=== PATIENT | male | born 1970 | race African-American/Black ===

== ENCOUNTER 2016-05-14 23:36 | Emergency (ER) | payer MEDICAID ==
[~2016-05-14] VITALS: Ht 182.9 cm; Wt 92.1 kg
[2016-05-15] MEDS ORDERED: ALBUTEROL SULF 2.5 MG/0.5ML(0.5%) NEB SOLN NEB ONE
[2016-05-15] MEDS ORDERED: IPRATROPIUM BROM 0.5 MG/2.5ML INH SOL NEB ONE
[2016-05-15 00:15] LABS: Basophils # (auto) 0.3 uL; Basophils % (auto) 3.9 % (0.0-2.0); DEFINITIVE VIEW TRANSMISSION; Eosinophils # (auto) 0.1 uL; Eosinophils % (auto) 1.5 % (0.0-7.0); Hematocrit 39.6 % (41.0-53.0); Hemoglobin 13.3 g/dL (13.5-17.5); Lymphocytes # (auto) 2.6 uL; Lymphocytes % (auto) 41.1 % (10.0-50.0); Mean Corpuscular Hemoglobin 29.1 pg (28.0-32.0); Mean Corpuscular Hgb Conc. 33.5 g/dL (32.0-36.0); Mean Corpuscular Volume 86.7 fL (80.0-100.0); Mean Platelet Volume 8.6 fL (7.4-10.4); Monocytes # (auto) 1.1 uL; Neutrophils # (auto) 2.5 uL; Neutrophils % (auto) 37.5 % (37.0-80.0); Platelet Count (auto) 272 10^3/uL (140-450); Red Cell Distribution Width 11.6 % (11.6-16.0); White Blood Cell 6.6 10^3/uL (4.4-10.8)
[2016-05-15 00:25] LABS: INR 1.09 (0.9-1.15); Partial Thromboplastin Time 25.5 sec (22.64-33.71); Prothrombin Time 11.2 sec (9.37-12.3)
[2016-05-15 00:27] LABS: Albumin 4.2 g/dL (3.4-5.0); Anion Gap 7 (5-15); Aspartate Aminotransferase 26 U/L (15-37); BUN/Creatinine Ratio 13.5; Blood Urea Nitrogen 14 mg/dL (7-18); Calcium 9.6 mg/dL (8.5-10.1); Carbon Dioxide 28 mmol/L (21-32); Chloride 107 mmol/L (98-107); GFR African American 99 mL/min; GFR Non-African American 82 mL/min; Glucose 97 mg/dL (74-106); Magnesium 2.5 mg/dL (1.6-2.6); Potassium 3.7 mmol/L (3.5-5.1); Sodium 142 mmol/L (136-145)
[2016-05-15 00:32] LABS: Alkaline Phosphatase 87 U/L (45-117); Bilirubin, Total 0.5 mg/dL (0.2-1.0); Total Protein 7.9 g/dL (6.4-8.2)
[2016-05-15 00:34] LABS: B-Type Natriuretic Peptide 1.31 pg/mL (0-100)
[2016-05-15 00:40] LABS: Temperature: 22.9 C (20.0-25.0)
[2016-05-15 02:46] VITALS: BP 145/97
== END 2016-05-15 03:47 | disposition left against medical advice (07) ==
LOC: ER 23:43
DX: R07.9 Chest pain, unspecified (principal); Z53.21 Procedure and treatment not carried out due to patient leaving prior to being seen by health care provider
CPT/HCPCS: 36415; 71020; 80053; 83735; 83880; 84443; 84484; 85025; 85610; 85730; 93005; 94640

== ENCOUNTER 2016-11-04 15:29 | Emergency (ER) | payer MEDICAID ==
[~2016-11-04] VITALS: Ht 182.9 cm; Wt 91.6 kg
[2016-11-04 19:34] LABS: Basophils # (auto) 0.1 uL; CONDITION Y; Eosinophils # (auto) 0.1 uL; Eosinophils % (auto) 1.4 % (0.0-7.0); Hematocrit 39.2 % (41.0-53.0); Hemoglobin 13.3 g/dL (13.5-17.5); Lymphocytes # (auto) 2.3 uL; Mean Corpuscular Hemoglobin 30.4 pg (28.0-32.0); Mean Corpuscular Volume 89.6 fL (80.0-100.0); Mean Platelet Volume 8.7 fL (7.4-10.4); Monocytes # (auto) 0.4 uL; Monocytes % (auto) 7.9 % (0.0-12.0); Neutrophils # (auto) 2.4 uL; Neutrophils % (auto) 45.7 % (37.0-80.0); Platelet Count (auto) 264 10^3/uL (140-450); Red Cell Distribution Width 12.9 % (11.6-16.0); White Blood Cell 5.3 10^3/uL (4.4-10.8)
[2016-11-04 19:48] LABS: INR 0.97 (0.9-1.15); Partial Thromboplastin Time 26.5 sec (22.64-33.71); Prothrombin Time 10.6 sec (9.37-12.3)
[2016-11-04 20:02] LABS: Albumin 3.8 g/dL (3.4-5.0); Alkaline Phosphatase 80 U/L (45-117); Anion Gap 7 (5-15); Aspartate Aminotransferase 18 U/L (15-37); B-Type Natriuretic Peptide 40.68 pg/mL (0-100); BUN/Creatinine Ratio 17.4; Bilirubin, Total 0.3 mg/dL (0.2-1.0); Blood Urea Nitrogen 15 mg/dL (7-18); Calcium 8.9 mg/dL (8.5-10.1); Carbon Dioxide 27 mmol/L (21-32); Chloride 107 mmol/L (98-107); GFR African American 123 mL/min; GFR Non-African American 102 mL/min; Glucose 79 mg/dL (74-106); Magnesium 2.5 mg/dL (1.6-2.6); Potassium 3.9 mmol/L (3.5-5.1); Sodium 141 mmol/L (136-145); Total Protein 7.3 g/dL (6.4-8.2)
[2016-11-04 20:31] LABS: Temperature: 22.4 C (20.0-25.0)
[2016-11-04 21:11] VITALS: BP 106/77
[2016-11-04] MEDS ORDERED: ASPirin 81 mg TAB PO ONE (22:30)
== END 2016-11-04 22:30 | disposition home or self-care (01) ==
LOC: ER 15:34
DX: R07.89 Other chest pain (principal); M54.5 Low back pain; I10 Essential (primary) hypertension; J45.909 Unspecified asthma, uncomplicated
CPT/HCPCS: 36415; 71010; 80053; 80307; 83735; 83880; 84484; 85025; 85610; 85730; 93005

== ENCOUNTER 2017-02-16 19:48 | Emergency (ER) | payer MEDICAID ==
[~2017-02-16] VITALS: Ht 182.9 cm; Wt 93.0 kg
[2017-02-16 20:24] LABS: Urine Bilirubin Negative (Negative); Urine Blood Negative /uL (Negative); Urine Color Yellow (Yellow); Urine Glucose Normal (Normal); Urine Ketone Negative (Negative); Urine Mucus FEW (None Seen); Urine Nitrite Negative (Negative); Urine RBC <1 /hpf (0 - 3); Urine Squamous Epithelial Cell FEW /hpf (<5); Urine Urobilinogen Normal (Negative)
[2017-02-16 20:24] LABS: Basophils # (auto) 0.1 uL; Basophils % (auto) 1.2 % (0.0-2.0); Eosinophils # (auto) 0.1 uL; Hematocrit 40.3 % (41.0-53.0); Hemoglobin 13.8 g/dL (13.5-17.5); Lymphocytes % (auto) 52.7 % (10.0-50.0); Mean Corpuscular Hemoglobin 30.7 pg (28.0-32.0); Mean Corpuscular Hgb Conc. 34.2 g/dL (32.0-36.0); Mean Corpuscular Volume 89.8 fL (80.0-100.0); Mean Platelet Volume 8.1 fL (6.9-10.8); Monocytes # (auto) 0.5 uL; Monocytes % (auto) 9.1 % (0.0-12.0); Neutrophils # (auto) 2.1 uL; Nucleated Red Blood Cells % 0.3 %; Platelet Count (auto) 229 10^3/uL (140-450); Red Cell Distribution Width 13.1 % (11.8-14.3); White Blood Cell 5.7 10^3/uL (4.4-10.8)
[2017-02-16 20:35] LABS: Albumin 4.2 g/dL (3.4-5.0); BUN/Creatinine Ratio 12.8; Calcium 9.1 mg/dL (8.5-10.1); Potassium 3.7 mmol/L (3.5-5.1)
[2017-02-16 20:44] LABS: Bilirubin, Total 0.3 mg/dL (0.2-1.0); Total Protein 7.8 g/dL (6.4-8.2)
[2017-02-17] MEDS ORDERED: HYDROcodone-ACET 10/325MG TAB PO ONE (04:00)
[2017-02-17 04:52] VITALS: BP 103/81
== END 2017-02-17 05:21 | disposition home or self-care (01) ==
LOC: ER 19:52
DX: R10.32 Left lower quadrant pain (principal); J45.909 Unspecified asthma, uncomplicated; I10 Essential (primary) hypertension
CPT/HCPCS: 36415; 74176; 80053; 81001; 82150; 83690; 85025

== ENCOUNTER 2017-06-25 09:18 | Emergency (ER) | payer SELFPAY ==
[~2017-06-25] VITALS: Ht 182.9 cm; Wt 84.4 kg
[2017-06-25 09:25] VITALS: BP 157/106
== END 2017-06-25 10:59 | disposition home or self-care (01) ==
LOC: ER 09:19
DX: J02.9 Acute pharyngitis, unspecified (principal); H66.93 Otitis media, unspecified, bilateral; J45.909 Unspecified asthma, uncomplicated; I10 Essential (primary) hypertension; Z76.0 Encounter for issue of repeat prescription
CPT/HCPCS: 93005

== ENCOUNTER 2017-08-07 06:51 | Emergency (ER) | payer MEDICAID ==
[~2017-08-07] VITALS: Ht 182.9 cm; Wt 88.5 kg
[2017-08-07 07:15] VITALS: BP 161/102
[2017-08-07] MEDS ORDERED: KETOROLAC TROMETH 60MG/2ML VIAL IM ONE (08:00)
== END 2017-08-07 08:20 | disposition home or self-care (01) ==
LOC: ER 06:51
DX: M23.92 Unspecified internal derangement of left knee (principal); I10 Essential (primary) hypertension; J45.909 Unspecified asthma, uncomplicated
CPT/HCPCS: 73562; 96372; 99284; J1885